=== PATIENT | female | born 1985 ===

== ENCOUNTER 2016-09-29 20:08 | Emergency (ER) | payer OTHER ==
[2016-09-29] MEDS ORDERED: Albuterol-Ipratrop 3 mg / 0.5 (3 ml) UD ONE (20:55)
[2016-09-29 20:57] VITALS: BP 146/65; PULSE 68; RESP 18; TEMP 98.5; O2SAT 98
[2016-09-29] MEDS ORDERED: Albuterol-Ipratrop 3 mg / 0.5 (3 ml) UD INH STA (20:57)
[2016-09-29] MEDS ORDERED: guaiFENesin 100 mg/5 ml Syrup UD PO STA (21:11)
[2016-09-29] MEDS ORDERED: guaiFENesin 200 mg/10 ml Syrup UD ONE (21:16)
--- NOTE | 2016-09-29 21:42 | C.PDOC ---
History Of Present Illness 31 y/o female presents to the ED for evaluation of a harsh dry cough which began 1 month ago. Patient state she has been using her inhaler with transient relief. She denies fever, chills, and shortness of breath. Time Seen by Provider: 09/29/16 20:46 Chief Complaint (Nursing): Cough, Cold, Congestion History Per: Patient History/Exam Limitations: no limitations Onset/Duration Of Symptoms: Other (1 month ) Current Symptoms Are (Timing): Still Present Associated Symptoms: Cough. denies: Fever, Chills, Sputum Ear Symptoms: Bilateral: None Additional History Per: Patient Past Medical History Reviewed: Historical Data, Nursing Documentation, Vital Signs Vital Signs: Last Vital Signs Temp 98.5 F 09/29/16 20:53 Pulse 68 09/29/16 20:53 Resp 18 09/29/16 21:00 BP 146/65 09/29/16 20:53 Pulse Ox 98 09/29/16 22:27 - Medical History PMH: Asthma Surgical History: No Surg Hx Family History: States: Unknown Family Hx - Social History Hx Tobacco Use: No Hx Alcohol Use: No Hx Substance Use: No - Immunization History Hx Tetanus Toxoid Vaccination: No Hx Influenza Vaccination: No Hx Pneumococcal Vaccination: No Review Of Systems Except As Marked, All Systems Reviewed And Found Negative. Constitutional: Negative for: Fever, Chills Respiratory: Positive for: Cough. Negative for: Shortness of Breath, Sputum Physical Exam - Physical Exam Appears: Non-toxic, No Acute Distress Skin: Normal Color, Warm, Dry Head: Atraumatic, Normacephalic Eye(s): bilateral: Normal Inspection, EOMI Nose: Normal Oral Mucosa: Moist Neck: Supple Chest: Symmetrical, No Deformity, No Tenderness Cardiovascular: Rhythm Regular, No Murmur Respiratory: Normal Breath Sounds, No Rales, No Rhonchi, No Wheezing, Other (+ persistent coughing noted ) Back: Normal Inspection, No Vertebral Tenderness Extremity: Normal ROM, Capillary Refill (less than 2 seconds ) Neurological/Psych: Oriented x3, Normal Speech, Normal Cognition Gait: Steady ED Course And Treatment O2 Sat by Pulse Oximetry: 98 Pulse Ox Interpretation: Normal Progress Note: CXR ordered and reviewed. Patient recieved Albuterol IH, Robitussin PO, and Prednisone PO. On reassessment, patient is resting comfortably, showing no signs of respiratory distress, and reports an improvement in her symptoms. Patient is stable for discharge and is advised to follow up with her PMD within 1-2 days for further evaluation. Reassessment Condition: Improved Disposition - Disposition Referrals: Non [facility] Provider, [Primary Care Provider] - Disposition: HOME/ ROUTINE Disposition Time: 21:39 Condition: STABLE Additional Instructions: Follow up with PMD in 1-2 days. Return to ER if symptoms persist or worsen. 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 - Scribe Statement The provider has reviewed the documentation as recorded by the Scribe (Harleen Del Rosario) All medical record entries made by the Scribe were at my direction and personally dictated by me. I have reviewed the chart and agree that the record accurately reflects my personal performance of the history, physical exam, medical decision making, and the department course for this patient. I have also personally directed, reviewed, and agree with the discharge instructions and disposition.
--- NOTE | 2016-09-30 11:59 | RAD ---
HISTORY: Upper respiratory infection. COMPARISON: No prior. TECHNIQUE: Chest PA and lateral FINDINGS: LUNGS: Mild venous congestion. Bibasilar breast and nipple shadows. PLEURA: No significant pleural effusion identified. No pneumothorax apparent. CARDIOVASCULAR: Normal. OSSEOUS STRUCTURES: No significant abnormalities. VISUALIZED UPPER ABDOMEN: Normal. OTHER FINDINGS: None. IMPRESSION: Mild venous congestion.
== END 2016-09-29 21:55 | disposition home or self-care (01) ==
LOC: C.ER 20:08 → SUPCPDRO 20:08 → C.ER 21:55
DX: J40 Bronchitis, not specified as acute or chronic (principal)

== ENCOUNTER 2016-12-06 09:21 | Emergency (ER) | payer OTHER ==
[2016-12-06] MEDS ORDERED: Albuterol-Ipratrop 3 mg / 0.5 (3 ml) UD IH STA (12:20)
--- NOTE | 2016-12-06 12:57 | RAD ---
HISTORY: cough/wheezing COMPARISON: Comparison is made to 09/29/2016 TECHNIQUE: Chest PA and lateral FINDINGS: LUNGS: No active pulmonary disease. PLEURA: No significant pleural effusion identified. No pneumothorax apparent. CARDIOVASCULAR: Normal. OSSEOUS STRUCTURES: No significant abnormalities. VISUALIZED UPPER ABDOMEN: Normal. OTHER FINDINGS: None. IMPRESSION: No radiographic evidence of pneumonia.
[2016-12-06] MEDS ORDERED: Albuterol-Ipratrop 3 mg / 0.5 (3 ml) UD ONE (13:00)
[2016-12-06] MEDS ORDERED: Albuterol 0.083% Inhal Sol (2.5 mg/3 mL) UD IH STA (14:01)
--- NOTE | 2016-12-06 14:49 | C.PDOC ---
History Of Present Illness 31 year old female presents to the ED with complaints of cough and intermittent shortness of breath for five months. Patient was seen in ED two months ago and discharged home. She followed up in clinic but symptoms persist. Patient denies fever, chills, nausea, vomiting, or chest pain. Time Seen by Provider: 12/06/16 10:19 Chief Complaint (Nursing): Cough, Cold, Congestion History Per: Patient, Family (father ) History/Exam Limitations: no limitations Onset/Duration Of Symptoms: Intermittent Episodes (5 months ) Current Symptoms Are (Timing): Still Present Reports Recently: Seen In ED (2 months ago for similar complaints ) Recent travel outside of the [place]: No Additional History Per: Prior Records Past Medical History Reviewed: Historical Data, Nursing Documentation, Vital Signs Vital Signs: Last Vital Signs Temp 98.1 F 12/06/16 15:22 Pulse 97 H 12/06/16 15:22 Resp 20 12/06/16 15:22 BP 105/71 12/06/16 15:22 Pulse Ox 99 12/06/16 19:37 - Medical History PMH: Asthma Family History: States: Unknown Family Hx - Social History Hx Tobacco Use: No Hx Alcohol Use: No Hx Substance Use: No - Immunization History Hx Tetanus Toxoid Vaccination: No Hx Influenza Vaccination: No Hx Pneumococcal Vaccination: No Review Of Systems Constitutional: Negative for: Fever, Chills Cardiovascular: Negative for: Chest Pain, Palpitations Respiratory: Positive for: Cough, Shortness of Breath Gastrointestinal: Negative for: Nausea, Vomiting, Abdominal Pain, Diarrhea Physical Exam - Physical Exam Appears: Non-toxic, No Acute Distress Skin: Warm, Dry Head: Atraumatic Eye(s): bilateral: Normal Inspection, PERRL, EOMI Oral Mucosa: Moist Neck: Supple Chest: Symmetrical, No Deformity Cardiovascular: Rhythm Regular, No Murmur Respiratory: No Rales, No Rhonchi, Wheezing Gastrointestinal/Abdominal: Soft, No Tenderness, No Distention, No Guarding, No Rebound Neurological/Psych: Oriented x3 ED Course And Treatment O2 Sat by Pulse Oximetry: 99 (room air ) Progress Note: Chest X-ray was ordered and patient was given two nebulizer treatments and prednisone. On re-evaluation, patient is no longer wheezing. At bed side, patient's father noted strong family history of asthma. Patient was given the names of pulmonologists to follow up with. Information was verbalized in uruguayan to ensure understanding. Disposition - Disposition Referrals: Tee Meléndez MD [Staff Provider] - Meme Romero MD [Staff Provider] - Disposition: HOME/ ROUTINE Disposition Time: 14:47 Condition: STABLE Additional Instructions: Follow up with PMD within 1-2 days. Return to Ed if feel worse. 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 - Scribe Statement The provider has reviewed the documentation as recorded by the Scribe Celia Gong All medical record entries made by the Scribe were at my direction and personally dictated by me. I have reviewed the chart and agree that the record accurately reflects my personal performance of the history, physical exam, medical decision making, and the department course for this patient. I have also personally directed, reviewed, and agree with the discharge instructions and disposition.
[2016-12-06] MEDS ORDERED: Albuterol 0.083% Inhal Sol (2.5 mg/3 mL) UD ONE (14:52)
[2016-12-06 15:24] VITALS: BP 105/71; PULSE 97; RESP 20; TEMP 98.1
[2016-12-06 19:31] VITALS: O2SAT 99
== END 2016-12-06 15:22 | disposition home or self-care (01) ==
LOC: C.ER 09:21
DX: J98.01 Acute bronchospasm (principal); R05 Cough

== ENCOUNTER 2017-11-03 12:01 | Emergency (ER) | payer OTHER ==
[2017-11-03 12:01] VITALS: BMI 26.6
[2017-11-03 12:12] VITALS: RESP 16; O2SAT 99
[2017-11-03 13:47] LABS: HCG,QUALITATIVE URINE NEGATIVE (NEGATIVE); SQUAMOUS EPITHIAL 3 /hpf (0-5); URINE BACTERIA RARE (<OCC); URINE BILIRUBIN NEGATIVE (NEGATIVE); URINE BLOOD NEGATIVE (NEGATIVE); URINE CLARITY Clear (Clear); URINE COLOR Yellow (YELLOW); URINE GLUCOSE (UA) NORMAL (Normal); URINE LEUKOCYTE ESTERASE 1+ Leu/uL (Negative); URINE PROTEIN NEGATIVE (NEGATIVE); URINE UROBILINOGEN NORMAL mg/dL (0.2-1.0)
[2017-11-03 14:19] LABS: BASO # 0.1 K/uL (0.0-0.2); BASO % 0.9 % (0.0-2.0); EOS # 0.3 K/uL (0.0-0.7); EOS % 5.5 % (0.0-4.0); HEMOGLOBIN 10.2 g/dL (11.0-16.0); MEAN CELL VOLUME 64.1 fL (81.0-99.0); MEAN CORPUSCULAR HEMOGLOBIN 20.3 pg (27.0-31.0); MEAN CORPUSCULAR HGB CONC 31.7 g/dL (33.0-37.0); MEAN PLATELET VOLUME 9.3 fL (7.2-11.7); MONO # 0.5 K/uL (0.0-0.8); NEUT # 3.1 K/uL (1.8-7.0); NEUT % 51.6 % (50.0-75.0); RBC 5.02 Mil/uL (3.80-5.20); RED CELL DISTRIBUTION WIDTH 20.2 % (11.5-14.5)
[2017-11-03 14:35] LABS: ALB/GLOB RATIO 1.3 (1.0-2.1); ALBUMIN 4.7 g/dL (3.5-5.0); ALT/SGPT 22 U/L (9-52); AST/SGOT 23 U/L (14-36); BLOOD UREA NITROGEN 9 mg/dL (7-17); CALCIUM 9.9 mg/dl (8.6-10.4); GFR AFRICAN-AMERICAN > 60; GFR NON-AFRICAN AMERICAN > 60
--- NOTE | 2017-11-03 16:42 | US ---
Date of service: 11/03/2017 HISTORY: Pelvic pain COMPARISON: None available. TECHNIQUE: Transabdominal and endovaginal ultrasound examination of the pelvis was obtained. FINDINGS: UTERUS: Measures 7.9 x 4.2 x 5.7 cm. Normal in size and appearance. No fibroid or other mass lesion seen. ENDOMETRIUM: Measures 8.6 mm in diameter. Unremarkable. CERVIX: No cervical abnormality identified. RIGHT OVARY: Measures 3.3 x 2.3 x 3.1 cm. No solid mass. Normal flow. Prominent follicle noted at the right ovary measures 1.8 x 1.4 x 1.1 point LEFT OVARY: Measures 3.2 x 1.4 x 2.7 cm. No solid mass. Normal flow. FREE FLUID: No significant free fluid noted. OTHER FINDINGS: None. IMPRESSION: Prominent follicle at the right ovary. Otherwise grossly unremarkable ultrasound examination of the pelvis.
[2017-11-03] MEDS ORDERED: cefTRIAXone (Rocephin) 250 mg Inj IM STA (17:46)
--- NOTE | 2017-11-03 17:49 | C.PDOC ---
Time Seen by Provider: 11/03/17 13:09 Chief Complaint (Nursing): Abdominal Pain History Per: Patient Onset/Duration Of Symptoms: Days Current Symptoms Are (Timing): Still Present Severity: Moderate Location Of Pain/Discomfort: Suprapubic Quality Of Discomfort: Cramping, "Pain" Alleviating Factors: None Additional History Per: Prior Records Abnormal Vaginal Bleeding: No Past Medical History Reviewed: Historical Data, Nursing Documentation, Vital Signs Vital Signs: Last Vital Signs Temp 98.4 F 11/03/17 12:10 Pulse 83 11/03/17 12:10 Resp 16 11/03/17 12:10 BP 116/82 11/03/17 12:10 Pulse Ox 99 11/03/17 12:10 - Medical History PMH: Asthma Surgical History: No Surg Hx Family History: States: Unknown Family Hx - Social History Hx Tobacco Use: No Hx Alcohol Use: No Hx Substance Use: No - Immunization History Hx Tetanus Toxoid Vaccination: No Hx Influenza Vaccination: No Hx Pneumococcal Vaccination: No Review Of Systems Except As Marked, All Systems Reviewed And Found Negative. Constitutional: Negative for: Fever Cardiovascular: Negative for: Chest Pain Respiratory: Negative for: Shortness of Breath Genitourinary: Positive for: Pelvic Pain. Negative for: Vaginal Bleeding Musculoskeletal: Negative for: Neck Pain Skin: Negative for: Rash Neurological: Negative for: Weakness, Numbness Physical Exam - Physical Exam Appears: Non-toxic, No Acute Distress Skin: Normal Color, Warm, Dry, No Rash Head: Atraumatic, Normacephalic Eye(s): bilateral: PERRL, EOMI Oral Mucosa: Moist Neck: Normal ROM, Supple Cardiovascular: Rhythm Regular Respiratory: Normal Breath Sounds, No Accessory Muscle Use Gastrointestinal/Abdominal: Soft, Tenderness (suprapubic), No Distention, No Guarding, No Rebound Back: No CVA Tenderness Pelvic: No Vaginal Bleeding, Vaginal Discharge, Cervical Motion Tenderness, Tender Uterus Extremity: Normal ROM Neurological/Psych: Oriented x3, Normal Motor, Normal Sensation ED Course And Treatment - Laboratory Results Result Diagrams: 11/03/17 14:12 11/03/17 14:12 Lab Interpretation: No Acute Changes Urine POC: Negative O2 Sat by Pulse Oximetry: 99 Pulse Ox Interpretation: Normal - CT Scan/US Pelvic US Other Rad Studies (CT/US): Read By Radiologist, Radiology Report Reviewed CT/US Interpretation: IMPRESSION: Prominent follicle at the right ovary. Otherwise grossly unremarkable ultrasound examination of the pelvis. Progress Note: Will treat for PID Disposition Counseled Patient/Family Regarding: Studies Performed, Diagnosis, Need For Followup, Rx Given - Disposition Disposition: HOME/ ROUTINE Disposition Time: 17:50 Condition: STABLE Additional Instructions: Practice safe sex (always use condoms). Follow up with your [employer] within 1-2 weeks for further evaluation and treatment. Return to the ER if you develop fever, vomiting, worsening of symptoms or if you have any other concerns. Prescriptions: Doxycycline Hyclate 100 mg PO BID #28 cap Instructions: Pelvic Inflammatory Disease (ED) Forms: [employer] (Filipino) Print Language: SETSWANA - Clinical Impression Clinical Impression: PID (acute pelvic inflammatory disease)
[2017-11-03 18:46] VITALS: BP 116/76; PULSE 81; TEMP 98.5
== END 2017-11-03 18:55 | disposition home or self-care (01) ==
LOC: C.ER 12:01
DX: N73.0 Acute parametritis and pelvic cellulitis (principal)
CPT/HCPCS: 76830; 76856; 80053; 81001; 84703; 85025; 87491; 87591; 96372; 96374; 99284; J0696; J1885